=== PATIENT | female | born 1965 | race Caucasian/White ===

== ENCOUNTER 2018-01-08 07:23 | Day surgery (SDC) | payer MEDICARE, OTHER ==
[~2018-01-08] VITALS: Ht 172.7 cm; Wt 104.3 kg
[~2018-01-08 07:23] MED LIST: AMITRIPTYLINE H10 MG PO; LEVO-T50 MCG PO; MOBIC15 MG PO; TOPROL XL50 MG PO; ULTRAM50 MG PO
--- NOTE | 2018-01-08 09:03 | NUR ---
01/08/18 0903 Lu Dickens 7 PT ARRIVED WITH EYE OPEN AND REPONDING TO QUESTIONS. RESP EVEN AND UNLABORED. PT DENIES NAUSEA AND PAIN. PT REORIENTED TO PACU. PT THEN ASLEEP. 0902 PT WAKES TO VERBAL STIMULI AND O2 IS REMOVED, O2 SAT 97%. PT ENCOURAGED TO DEEP BREATH. PT BACK TO SLEEP.
--- NOTE | 2018-01-09 12:42 | OR ---
[facility] [address] [place], [place] [address] Signed DATE OF OPERATION: 01/08/2018 SURGEON: Ivan Cho MD PREOPERATIVE DIAGNOSIS: Colon screening. POSTOPERATIVE DIAGNOSIS: Normal colon to cecum. PROCEDURE: Total colonoscopy to cecum. ANESTHESIA: Intravenous sedation, fentanyl 100 mcg, Versed 7 mg. INDICATION: This 52-year-old white woman is a patient of Dr. Barroso and is here for colon screening. She understands the risks of bleeding, infection, and perforation related to colonoscopy and wished to proceed. She has no family history of colon cancer and is symptom-free. FINDINGS: The prep was good. Complete colonoscopy was undertaken to the cecum with good identification of the appendiceal orifice. The remaining colon was entirely normal. DESCRIPTION OF PROCEDURE: The patient was brought to the endoscopy suite and placed in lateral decubitus position and given intravenous sedation to the point of slurred speech and nystagmus. Digital rectal examination was normal. An Olympus video colonoscope was passed in the rectum and manipulated throughout the colon ultimately intubating the cecum itself. The ileocecal valve and appendiceal orifice were normal. The scope was withdrawn from that point and examination throughout upon withdrawal of scope showed no sign of abnormality, specifically no polyps, diverticular formation, colitis, or cancer. Retroflex view was normal as well. The scope was removed and the patient was taken to the recovery room in good condition. CONCLUDING DIAGNOSIS: Normal colon. Electronically Signed By: IVAN CHO MD 01/09/18 1242 PATIENT NAME: NOE SHEIKH OPERATIVE REPORT DATE OF : 63 REPORT #: [id number] PHYSICIAN: IVAN CHO MD PCP: SHENG BARROSO DO REPORT IS CONFIDENTIAL AND NOT TO BE RELEASED WITHOUT AUTHORIZATION [place] [id number] [facility] [place], [place] [address] Signed PLAN: Recommend repeat colonoscopy in 10 years sooner if clinically indicated. She will return to the ongoing care of Dr. Barroso. MD MIL Garcia/SARATH /[id number] cc: Dr. Barroso Copies: ~ Electronically Signed By: IVAN CHO MD 01/09/18 1242 PATIENT NAME: NOE SHEIKH OPERATIVE REPORT DATE OF : 63 REPORT #: [id number] PHYSICIAN: IVAN CHO MD PCP: SHENG BARROSO DO REPORT IS CONFIDENTIAL AND NOT TO BE RELEASED WITHOUT AUTHORIZATION
== END 2018-01-08 09:45 | disposition home or self-care (01) ==
LOC: DS 07:23 → OPS 07:23 → DS 08:30 → OPS 09:45
PROVIDERS: Surgery
PROC: 0DJD8ZZ Inspection of Lower Intestinal Tract, Via Natural or Artificial Opening Endoscopic (ICD-10-PCS; principal; 2018-01-08 08:30)
DX: Z12.11 Encounter for screening for malignant neoplasm of colon (principal); E66.3 Overweight; I10 Essential (primary) hypertension; Z88.2 Allergy status to sulfonamides; Z98.890 Other specified postprocedural states
CPT/HCPCS: G0121; 99153; G0500; J2250; J3010; J7120